=== PATIENT | male | born 1990 | race Caucasian/White ===

== ENCOUNTER 2018-01-21 05:13 | Emergency (ER) | payer OTHER ==
[2018-01-21] MEDS ORDERED: IV NORMAL SALINE 1000ML BAG 1,000 ML IV (06:00)
== END 2018-01-21 05:40 | disposition left against medical advice (07) ==
LOC: ER 05:13
DX: F41.9 Anxiety disorder, unspecified (principal); R00.2 Palpitations
CPT/HCPCS: 99284

== ENCOUNTER 2018-09-29 20:00 | Emergency (ER) | payer OTHER ==
[~2018-09-29] VITALS: Ht 172.7 cm; Wt 54.4 kg
[2018-09-29 20:26] VITALS: BP 104/63
--- NOTE | 2018-09-29 20:40 | PHYS DOC ---
Past Medical History Past Medical History: Anxiety Past Surgical History: No Surgical History Alcohol Use: Occasionally Drug Use: None Adult General Chief Complaint Chief Complaint: FEVER HPI HPI Patient is a 27 year old female presented ER today for evaluation of fever or chill ,body ache, nausea, diarrhea since earlier this morning. Patient says his family including his and daughter all have the same problem for the last few day. HE denies any sore throat, no neck pain, no abdominal pain. He does have headache and joints pain. Review of Systems Review of Systems Constitutional: Positive for fever or chills [] Eyes: Denies change in visual acuity, redness, or eye pain [] HENT: Denies nasal congestion or sore throat [] Respiratory: Denies cough or shortness of breath [] Cardiovascular: No additional information not addressed in HPI [] GI: Denies abdominal pain, nausea, vomiting, bloody stools or diarrhea [] : Denies dysuria or hematuria [] Musculoskeletal: Positive for back pain or joint pain [] Integument: Denies rash or skin lesions [] Neurologic: Positive for headache, NO focal weakness or sensory changes [] Endocrine: Denies polyuria or polydipsia [] All other systems were reviewed and found to be within normal limits, except as documented in this note. Current Medications Current Medications Current Medications Medications (Trade) Dose Ordered Sig/Grover Start Time Stop Time Status Last Admin Dose Admin Ibuprofen (Motrin) 800 mg 1X ONCE 09/29/18 20:45 09/29/18 20:46 DC 09/29/18 20:45 800 MG Ondansetron HCl (Zofran Odt) 4 mg 1X ONCE 09/29/18 20:45 09/29/18 20:46 DC 09/29/18 20:45 4 MG Allergies Allergies Allergies Coded Allergies Type Severity Reaction Last Updated Verified No Known Drug Allergies 01/21/18 No Physical Exam Physical Exam Constitutional: Well developed, well nourished, no acute distress, non-toxic appearance. [] HENT: Normocephalic, atraumatic, bilateral external ears normal, oropharynx moist, no oral exudates, nose normal. [] Eyes: PERRLA, EOMI, conjunctiva normal, no discharge. [] Neck: Normal range of motion, no tenderness, supple, no stridor. NO NUCHAL RIGIDITY Cardiovascular:Heart rate regular rhythm, no murmur [] Lungs & Thorax: Bilateral breath sounds clear to auscultation [] Abdomen: Bowel sounds normal, soft, no tenderness, no masses, no pulsatile masses. [] Skin: Warm, dry, no erythema, no rash. [] Back: No tenderness, no CVA tenderness. [] Extremities: No tenderness, no cyanosis, no clubbing, ROM intact, no edema. [] Neurologic: Alert and oriented X 3, normal motor function, normal sensory function, no focal deficits noted. [] Psychologic: Affect normal, judgement normal, mood normal. [] Current Patient Data Vital Signs Vital Signs Date Time Temp Pulse Resp B/P (MAP) Pulse Ox O2 Delivery O2 Flow Rate FiO2 09/29/18 20:26 98.8 86 16 104/63 (77) 99 Room Air 98.8 Lab Values Laboratory Tests Test 09/29/18 20:24 Influenza Type A Antigen Negative (NEGATIVE) Influenza Type B Antigen Negative (NEGATIVE) EKG EKG [] Radiology/Procedures Radiology/Procedures [] Course & Med Decision Making Course & Med Decision Making Pertinent Labs and Imaging studies reviewed. (See chart for details) [] Dragon Disclaimer Dragon Disclaimer This electronic medical record was generated, in whole or in part, using a voice recognition dictation system. Departure Departure Impression: Primary Impression: Viral syndrome Disposition: 01 HOME, SELF-CARE Condition: STABLE Referrals: JOYCE DYSON MD (PCP) follow up with your doctor next week for reevaluation Patient Instructions: Viral Syndrome ANGI QUINN DO Sep 29, 2018 20:40
[2018-09-29] MEDS ORDERED: IBUPROFEN 400 MG TABLET. PO ONE (20:45)
[2018-09-29] MEDS ORDERED: ONDANSETRON ODT 4 MG TAB.RAPDIS. PO ONE (20:45)
[2018-09-29 21:04] LABS: INFLUENZA A PATIENT NEGATIVE (NEGATIVE); INFLUENZA B PATIENT NEGATIVE (NEGATIVE)
== END 2018-09-29 21:53 | disposition home or self-care (01) ==
LOC: ER 20:00
DX: B34.9 Viral infection, unspecified (principal); R19.7 Diarrhea, unspecified
CPT/HCPCS: 87804; 99283; Q0162

== ENCOUNTER 2018-11-30 17:28 | Emergency (ER) | payer OTHER ==
[~2018-11-30] VITALS: Ht 172.7 cm; Wt 54.4 kg
[2018-11-30 18:28] VITALS: BP 113/73
[2018-11-30] MEDS ORDERED: AMOX875T PO (18:48)
--- NOTE | 2018-11-30 18:49 | PHYS DOC ---
Past Medical History Past Medical History: No Pertinent History (LANA DAVALOS APRN) Past Surgical History: No Surgical History (LANA DAVALOS APRN) Alcohol Use: Heavy Drug Use: None (LANA DAVALOS APRN) Adult General Chief Complaint Chief Complaint: ABSCESS [facility] HPI Patient is a 27 year old male who presents with an abscess/cyst on the right ear lobe that he noted a week ago. He states he had one on the right forehead which subsided after a couple days. Patient denies any fever. Denies any drainage this area. He states this started as a small pimple and has grown bigger. Denies any fever, denies any coughing or congestion. (LANA DAVALOS APRN) Review of Systems Review of Systems Constitutional: Denies fever or chills [] Eyes: Denies change in visual acuity, redness, or eye pain [] HENT: Reports an abscess/cyst on the right ear lobe. Denies nasal congestion or sore throat [] Respiratory: Denies cough or shortness of breath [] Cardiovascular: No additional information not addressed in HPI [] GI: Denies abdominal pain, nausea, vomiting, bloody stools or diarrhea [] : Denies dysuria or hematuria [] Musculoskeletal: Denies back pain or joint pain [] Integument: Denies rash or skin lesions [] Neurologic: Denies headache, focal weakness or sensory changes [] All other systems were reviewed and found to be within normal limits, except as documented in this note. (LANA DAVALOS APRN) Allergies Allergies Allergies Coded Allergies Type Severity Reaction Last Updated Verified No Known Drug Allergies 01/21/18 No (ANGELA WHITE DO) Physical Exam Physical Exam Constitutional: Well developed, well nourished, no acute distress, non-toxic appearance. [] HENT: Normocephalic, atraumatic, bilateral external ears normal, oropharynx moist, no oral exudates, nose normal. [] The skin fold between the right ear lobe and the right cheek with an area of induration approximately 2 x 2 centimeters, this area is slightly erythematous, there is no warmth, there is no fluctuance, it's hard to tell if it's a early abscess/cyst/lymph node Eyes: PERRLA, EOMI, conjunctiva normal, no discharge. [] Neck: Normal range of motion, no tenderness, supple, no stridor. [] Cardiovascular:Heart rate regular rhythm, no murmur [] Lungs & Thorax: Bilateral breath sounds clear to auscultation [] Abdomen: Bowel sounds normal, soft, no tenderness, no masses, no pulsatile masses. [] Skin: Warm, dry, no erythema, no rash. [] Back: No tenderness, no CVA tenderness. [] Extremities: No tenderness, no cyanosis, no clubbing, ROM intact, no edema. [] Neurologic: Alert and oriented X 3, normal motor function, normal sensory function, no focal deficits noted. [] Psychologic: Affect normal, judgement normal, mood normal. [] (LANA DAVALOS APRN) Current Patient Data Vital Signs Vital Signs Date Time Temp Pulse Resp B/P (MAP) Pulse Ox O2 Delivery O2 Flow Rate FiO2 11/30/18 18:28 98.2 75 18 113/73 (86) 99 Room Air 98.2 (WHITEANGELA DO) EKG EKG [] (LANA DAVALOS APRN) Radiology/Procedures Radiology/Procedures [] (LANA DAVALOS APRN) Course & Med Decision Making Course & Med Decision Making Pertinent Labs and Imaging studies reviewed. (See chart for details) This is a 27-year-old male patient presenting to the ED today with an area of swelling just between the right ear lobe in the right cheek. It's hard to tell if this is an early abscess formation/cyst/lymph. He has had similar swelling on the right forehead that cleared on its own at this point we will just put him on antibiotics prophylaxis. Informed patient if this lesion has not subsided in 2 weeks we recommended he follows-up with her primary care doctor for further workup. (LANA DAVALOS APRN) Dragon Disclaimer Dragon Disclaimer This electronic medical record was generated, in whole or in part, using a voice recognition dictation system. (LANA DAVALOS APRN) Departure Departure Impression: Primary Impression: Cyst Disposition: 01 HOME, SELF-CARE Condition: STABLE Referrals: JOYCE DYSON MD (PCP) follow up in 2 weeks Patient Instructions: Cyst Removal Additional Instructions: You were evaluated for swelling to the right earlobe, this might be a cyst, lymph node or early abscess, take the prescribed medications as ordered. Follow- up with your own doctor in the next 1-2 weeks. Please come back to the ED at any point symptoms worsen. Scripts Amoxicillin (AMOXICILLIN) 875 Mg Tablet 1 TAB PO BID, #20 TAB Prov: LANA DAVALOS ASSESSMENT COUNSELOR 11/30/18 Attending Signature Attending Signature I have reviewed the PA/BELLMAN CAPTAIN's note and plan of care. I was available for consultation as needed during the patient's visit in the emergency department. I agree with the clinical impression, plan, and disposition. (ANGELA WHITE DO) LANA DAVALOS ASSESSMENT COUNSELOR November 30, 2018 18:49 ANGELA WHITE DO Dec 04, 2018 06:19
== END 2018-11-30 19:09 | disposition home or self-care (01) ==
LOC: ER 17:28
DX: Q18.1 Preauricular sinus and cyst (principal); H66.41 Suppurative otitis media, unspecified, right ear; F10.20 Alcohol dependence, uncomplicated; Y90.9 Presence of alcohol in blood, level not specified
CPT/HCPCS: 99283

== ENCOUNTER 2019-08-01 09:43 | Emergency (ER) | payer OTHER ==
[~2019-08-01] VITALS: Ht 172.7 cm; Wt 54.5 kg
[~2019-08-01 09:43] MED LIST: AMOX875T PO
[2019-08-01 10:05] VITALS: BP 116/65
--- NOTE | 2019-08-01 10:23 | PHYS DOC ---
Past Medical History Past Medical History: No Pertinent History Past Surgical History: No Surgical History Alcohol Use: Heavy Drug Use: None Adult General Chief Complaint Chief Complaint: CHEST PAIN [facility] HPI Patient is a 28 year old male presented to ER today for evaluation of right- sided chest pain with cough for about 3 days. Patient describes pain as sharp pain, hurt when he coughs or taking a deep breath. Patient is a smoker. She denies any fever. Patient denies any trouble breathing. Patient had no previous medical history, no heart problem, no history of blood clot disorder. All other ROS is negative unless otherwise noted in HPI Review of Systems Review of Systems See above Allergies Allergies Allergies Coded Allergies Type Severity Reaction Last Updated Verified No Known Drug Allergies 01/21/18 No Physical Exam Physical Exam See above Constitutional: Well developed, well nourished, no acute distress, non-toxic appearance. [] HENT: Normocephalic, atraumatic, bilateral external ears normal, oropharynx moist, no oral exudates, nose normal. [] Eyes: PERRLA, EOMI, conjunctiva normal, no discharge. [] Neck: Normal range of motion, no tenderness, supple, no stridor. [] Cardiovascular:Heart rate regular rhythm, no murmur [] Lungs & Thorax: Bilateral breath sounds clear to auscultation [] Abdomen: Bowel sounds normal, soft, no tenderness, no masses, no pulsatile masses. [] Skin: Warm, dry, no erythema, no rash. [] Back: No tenderness, no CVA tenderness. [] Extremities: No tenderness, no cyanosis, no clubbing, ROM intact, no edema. [] Neurologic: Alert and oriented X 3, normal motor function, normal sensory function, no focal deficits noted. [] Psychologic: Affect normal, judgement normal, mood normal. [] Current Patient Data Vital Signs Vital Signs Date Time Temp Pulse Resp B/P (MAP) Pulse Ox O2 Delivery O2 Flow Rate FiO2 08/01/19 10:05 98.3 62 16 116/65 (82) 99 Room Air 98.3 EKG EKG EKG WAS READ BY THIS PHYSICIAN, RATE OF 74 BPM, NO STEMI, NSR[] Radiology/Procedures Radiology/Procedures [][facility] [address] [place] [address] IMAGING REPORT Signed PATIENT: JENS BROWN ACCOUNT: [id number] : 1990 LOCATION: ER AGE: 28 SEX: M EXAM STATUS: REG ER ORD. PHYSICIAN: ANGI QUINN DO REASON: COUGH, CHEST PAIN FOR 3 DAYS PROCEDURE: CHEST PA & LATERAL EXAM: Chest, 2 views. HISTORY: Cough. Chest pain. COMPARISON: None. FINDINGS: 2 views of chest are obtained. There is no infiltrate, pleural effusion or pneumothorax. The heart is normal in size. There is hyperinflation likely due to inspiratory effort. IMPRESSION: No acute pulmonary finding. Electronically signed by: Mulu Rai MD (08/01/2019 10:28 AM) [facility] [place] DICTATED and SIGNED BY: MULU RAI MD DATE: 08/01/19 1028 Course & Med Decision Making Course & Med Decision Making Pertinent Labs and Imaging studies reviewed. (See chart for details) [] Dragon Disclaimer Dragon Disclaimer This electronic medical record was generated, in whole or in part, using a voice recognition dictation system. Departure Departure Impression: Primary Impression: Bronchitis Disposition: HOME, SELF-CARE Condition: STABLE Referrals: JOYCE DYSON MD (PCP) follow up with your doctor next week if you are not getting better. Patient Instructions: Acute Bronchitis Additional Instructions: Thank you for visiting our Emergency Department. We appreciate you trusting us with your care. If any additional problems come up don't hesitate to return to visit us. Please follow up with your primary care provider so they can plan additional care if needed and know about the problem that you had. If symptoms worsen come back to the Emergency Department. Any concerning symptoms that start such as chest pain, shortness of air, weakness or numbness on one side of the body, running high fevers or any other concerning symptoms return to the ER. Scripts Prednisone (PREDNISONE) 20 Mg Tablet 1 TAB PO DAILY, #10 TAB Prov: ANGI QUINN DO 08/01/19 Azithromycin (ZITHROMAX) 250 Mg Tablet 1 PKG PO UD, #6 TAB Prov: ANGI QUINN DO 08/01/19 ANGI QUINN DO Aug 01, 2019 10:23
--- NOTE | 2019-08-01 10:31 | RAD ---
EXAM: Chest, 2 views. HISTORY: Cough. Chest pain. COMPARISON: None. FINDINGS: 2 views of chest are obtained. There is no infiltrate, pleural effusion or pneumothorax. The heart is normal in size. There is hyperinflation likely due to inspiratory effort. IMPRESSION: No acute pulmonary finding. Electronically signed by: Mulu Fields MD (08/01/2019 10:28 AM) [facility] [place]
[2019-08-01] MEDS ORDERED: PRED20TA PO (10:53)
[2019-08-01] MEDS ORDERED: AZIT250T PO (10:53)
--- NOTE | 2019-08-01 11:41 | EKG ---
[facility] [address] [place] [address] Test Date: 2019-08-01 Test Time: 09:58:46 Pat Name: JENS BROWN Department: Room: Gender: M Scanner Operator: : 1990 Requested By: NAGI QUINN Order Number: [id number] Reading MD: Measurements Intervals [place] Rate: 74 P: 65 NM: 152 QRS: 81 QRSD: 80 T: 69 QT: 356 QTc: 400 Interpretive Statements SINUS RHYTHM NO SPECIFIC ECG ABNORMALITIES RI6.01 No previous ECG available for comparison
== END 2019-08-01 11:04 | disposition home or self-care (01) ==
LOC: ER 09:43
DX: J40 Bronchitis, not specified as acute or chronic (principal); R07.89 Other chest pain; F17.200 Nicotine dependence, unspecified, uncomplicated; F10.10 Alcohol abuse, uncomplicated
CPT/HCPCS: 71046; 93005; 99284